=== PATIENT | male | born 1965 | race Caucasian/White ===

== ENCOUNTER 2024-07-24 15:30 | Inpatient (IN) | payer OTHER ==
[~2024-07-24] VITALS: Ht 175.3 cm; Wt 78.1 kg
[2024-07-24 15:56] LABS: BASOPHILS % (AUTO) 0.2 % (0.0-2.0); EOSINOPHILS % (AUTO) 0.1 % (0.0-7.0); HEMATOCRIT 48.1 % (36.7-47.1); HEMOGLOBIN 16.1 g/dL (12.5-16.3); LYMPHOCYTES % (AUTO) 5.1 % (20.5-51.5); MEAN CORPUSCULAR HEMOGLOBIN 31.5 uug (23.8-33.4); MEAN CORPUSCULAR HGB CONC 34 g/dL (32.5-36.3); MEAN CORPUSCULAR VOLUME 94.2 fL (73.0-96.2); MONOCYTES # (AUTO) 2.2 K/uL (0.1-1.30); MONOCYTES % (AUTO) 11.4 % (0.0-11.0); NEUTROPHILS % (AUTO) 83.2 % (38.5-71.5); PLATELET COUNT (AUTO) 311 K/uL (152-348); RED CELL DISTRIBUTION WIDTH 15.8 % (12.1-16.2); WHITE BLOOD COUNT (AUTO) 19.2 K/uL (3.6-10.2)
[2024-07-24 15:58] LABS: DIFFERENTIAL COMMENT 1
[2024-07-24] MEDS: IV NORMAL SALINE 1000 ML BAG IV ONE ×2 (16:00→16:30)
[2024-07-24 16:05] LABS: CALCIUM 9.5 mg/dL (8.5-10.1); CREATININE 1.2 mg/dL (0.6-1.3); POTASSIUM 4.2 mmol/L (3.5-5.1)
[2024-07-24 16:11] LABS: ALBUMIN 3.2 g/dL (3.4-5.0); BILIRUBIN,DIRECT 0.3 mg/dL (0.0-0.2)
[2024-07-24 16:15] LABS: LACTIC ACID 2.5 mmol/L (0.4-2.0)
[2024-07-24] MEDS ORDERED: PIPERACILLIN/TAZOBACTAM/D5W 50 ML IV ONE ×3 (16:24→21:55)
[2024-07-24] MEDS: PIPERACILLIN SODIUM/TAZOBACTAM 3.375 G in IV DEXTROSE 5% 50 ML IV ONE (16:30)
[2024-07-24] MEDS ORDERED: VANCOMYCIN IV 200 ML ONE ×2 (16:46→21:54)
[2024-07-24] MEDS: VANCOMYCIN IV 1,000 MG in IV DEXTROSE 5% 250 ML IV ONE ×2 (17:00→22:07)
[2024-07-24 19:03] VITALS: BP 153/85; TEMP 99.9; O2SAT 99
[2024-07-24 19:58] VITALS: BP 123/76; TEMP 98.8; O2SAT 91
[2024-07-24] MEDS ORDERED: ACETAMINOPHEN 325 MG TABLET PO PRN (20:00)
[2024-07-24] MEDS ORDERED: ZOLPIDEM 5 MG TABLET PO PRN (20:00)
[2024-07-24] MEDS ORDERED: ONDANSETRON 4 MG/2 ML VIAL IV PRN (20:00)
[2024-07-24] MEDS ORDERED: ENALAPRILAT DIHYDRATE 1.25 MG/1 ML VIAL IV PRN (20:00)
[2024-07-24] MEDS ORDERED: MAGNESIUM HYDROXIDE 30 ML LIQUID UDC PO PRN (20:00)
[2024-07-24] MEDS: MORPHINE SULFATE 2 MG/1 ML DISP.SYRIN IV PRN (20:36)
[2024-07-24] MEDS: DOCUSATE SODIUM 100 MG CAPSULE PO SCH (20:39)
[2024-07-24] MEDS: ENOXAPARIN SODIUM 40 MG/0.4 ML DISP.SYRIN SQ SCH (20:43)
[2024-07-24] MEDS ORDERED: PIPERACILLIN SODIUM/TAZOBACTAM 3.375 G in IV DEXTROSE 5% 50 ML IV SCH (21:30)
[2024-07-24] MEDS: HYDROCODONE/APAP 10-325 MG TABLET PO PRN (22:33)
[2024-07-25 00:16] VITALS: BP 140/78; TEMP 98.1; O2SAT 93
[2024-07-25] MEDS: PIPERACILLIN SODIUM/TAZOBACTAM 3.375 G in IV DEXTROSE 5% 50 ML IV SCH (00:58)
[2024-07-25 05:02] VITALS: BP 109/61; TEMP 97.8; O2SAT 96
[2024-07-25] MEDS: PANTOPRAZOLE SODIUM 40 MG TABLET.DR PO SCH (06:15)
[2024-07-25 06:23] LABS: BASOPHILS # (AUTO) 0.1 K/UL (0.0-0.2); BASOPHILS % (AUTO) 0.6 % (0.0-2.0); EOSINOPHILS # (AUTO) 0.1 K/uL (0.0-0.7); EOSINOPHILS % (AUTO) 0.7 % (0.0-7.0); HEMATOCRIT 38.7 % (36.7-47.1); HEMOGLOBIN 13.2 g/dL (12.5-16.3); LYMPHOCYTES # (AUTO) 0.8 K/uL (0.8-4.8); LYMPHOCYTES % (AUTO) 6.8 % (20.5-51.5); MEAN CORPUSCULAR HEMOGLOBIN 32.3 uug (23.8-33.4); MEAN CORPUSCULAR HGB CONC 34 g/dL (32.5-36.3); MEAN CORPUSCULAR VOLUME 94.9 fL (73.0-96.2); MONOCYTES # (AUTO) 1.2 K/uL (0.1-1.30); MONOCYTES % (AUTO) 10.1 % (0.0-11.0); NEUTROPHILS # (AUTO) 9.8 K/uL (1.8-8.9); NEUTROPHILS % (AUTO) 81.8 % (38.5-71.5); PLATELET COUNT (AUTO) 245 K/uL (152-348); RED BLOOD CELL COUNT(AUTO) 4.07 MIL/uL (4.06-5.63); RED CELL DISTRIBUTION WIDTH 15.8 % (12.1-16.2); WHITE BLOOD COUNT (AUTO) 11.9 K/uL (3.6-10.2)
[2024-07-25 06:42] LABS: ALBUMIN 2.3 g/dL (3.4-5.0); BILIRUBIN,TOTAL 0.6 mg/dL (0.2-1.0); CALCIUM 8.2 mg/dL (8.5-10.1); CREATININE 0.8 mg/dL (0.6-1.3); MAGNESIUM 1.8 mg/dL (1.8-2.4); PHOSPHOROUS 2.7 mg/dL (2.5-4.9); TOTAL PROTEIN, SERUM 6.3 g/dL (6.4-8.2)
[2024-07-25 06:47] LABS: DIFFERENTIAL COMMENT 1
[2024-07-25 06:50] LABS: THYROID STIMULATING HORMONE 2.518 mIU/mL (0.358-3.740)
[2024-07-25 07:40] VITALS: BP 102/62; TEMP 98.5; O2SAT 94
[2024-07-25] MEDS ORDERED: ATOR20TA PO (09:46)
[2024-07-25] MEDS ORDERED: METF-440 PO (09:46)
[2024-07-25] MEDS ORDERED: LISI10TA29 PO (09:46)
[2024-07-25] MEDS ORDERED: BUPR-319 PO (09:46)
[2024-07-25] MEDS ORDERED: DIPH25CA83 PO (09:47)
[2024-07-25] MEDS ORDERED: PIPERACILLIN SODIUM/TAZOBACTAM 3.375 G in IV DEXTROSE 5% 50 ML IV SCH (12:00)
[2024-07-25] MEDS ORDERED: ZINC SULFATE 220 MG CAPSULE PO SCH (13:45)
[2024-07-25] MEDS ORDERED: ASCORBIC ACID 500 MG TABLET PO SCH (13:45)
[2024-07-25] MEDS ORDERED: LORAZEPAM 0.5 MG TABLET PO PRN (13:45)
[2024-07-26] MEDS ORDERED: THIAMINE HCL 100 MG TABLET PO SCH (09:00)
[2024-07-26] MEDS ORDERED: FOLIC ACID 1 MG TABLET PO SCH (09:00)
== END 2024-07-25 11:00 | disposition left against medical advice (07) | DRG 720 ==
LOC: ER 15:30 → TELE3 18:07
PROVIDERS: ADMIT Internal Medicine; ATTEND Internal Medicine
DX: A41.9 Sepsis, unspecified organism (principal); N17.0 Acute kidney failure with tubular necrosis; E44.0 Moderate protein-calorie malnutrition; E11.621 Type 2 diabetes mellitus with foot ulcer; L97.528 Non-pressure chronic ulcer of other part of left foot with other specified severity; M86.8X7 Other osteomyelitis, ankle and foot; L97.529 Non-pressure chronic ulcer of other part of left foot with unspecified severity; E87.1 Hypo-osmolality and hyponatremia; J44.9 Chronic obstructive pulmonary disease, unspecified; F17.210 Nicotine dependence, cigarettes, uncomplicated; F10.10 Alcohol abuse, uncomplicated; F12.90 Cannabis use, unspecified, uncomplicated; Z53.29 Procedure and treatment not carried out because of patient's decision for other reasons; E86.1 Hypovolemia; E78.5 Hyperlipidemia, unspecified; H91.93 Unspecified hearing loss, bilateral; I10 Essential (primary) hypertension; Z79.84 Long term (current) use of oral hypoglycemic drugs; Z79.899 Other long term (current) drug therapy; Z91.198 Patient's noncompliance with other medical treatment and regimen for other reason; L84 Corns and callosities
CPT/HCPCS: 36415; 73620; 83550; 83605; 83735; 84100; 84443; 85025; 85610; 86140; 87040; A4606; A4663; G0378; J1650; J2270; J2543; J3370; J7040; J7050